=== PATIENT | male | born 1975 | race Caucasian/White ===

== ENCOUNTER 2023-10-18 15:34 | Emergency (ER) | payer BC ==
--- OUTSIDE RECORDS SUMMARY | 2023-10-18 15:38 | XMS REPORT | Continuity of Care Document ---
:1975 Author Organization [facility] t Address [address] [facility]. [address] [place] [address] Care Team Providers Name Role Phone DEE RAMIREZ Primary Care Physician Unavailable JIA GORDILLO Attending Clinician Unavailable ANGLE MELARA Attending Clinician Unavailable IAN HERNANDEZ Attending Clinician Unavailable JUAN FRANCISCO DUNLAP Attending Clinician Unavailable Juan Francisco Dunlap MD Attending Clinician Unavailable Dillan Saab MD Attending Clinician Shantelle Wang CRNA Attending Clinician MD SANDRA Attending Clinician Unavailable ZAHIRA LARES Attending Clinician Unavailable LAB90 Attending Clinician Unavailable JUAN FRANCISCO DUNLAP Attending Clinician Unavailable VETO MISHRA Attending Clinician Unavailable SMITA GREWAL Attending Clinician Unavailable CORAZON REED Attending Clinician Unavailable DEE RAMIREZ Attending Clinician Unavailable JUAN FRANCISCO DUNLAP Admitting Clinician Unavailable Payers Payer Name Policy Type Policy Number Effective Date Expiration Date [facility] [id number] 2023 [employer]IMARY 00:00:00 BCBS PPO POS EPO [id number] 2023 CHOICE 00:00:00 Problems Condition Condition Condition Status Onset Resolution Last Treating Co mments Source Name Details Category Date Date Treatment Clinician Date Lumbar Lumbar Disease Active 2022-[address] [facility] radiculopa radiculopa 1-24 [facility] thy thy 00:00: Medical 00 Center Lumbar Lumbar Disease Active 2022-[address] [facility] [address] spondylosi spondylosi 1-24 [facility] s s 00:00: Medical 00 [place] Low back Low back Disease Active Kelse y pain pain 07-28 [facility] 00:00: - 00 Externa l Allergies, Adverse Reactions, Alerts Allergy Allergy Status Severity Reaction(s) Onset Inactive Treating Comm ents Source Name Type Date Date Clinician Steroids Propensi Active 2022-[address] [facility] problem Medical reaction 00 Center s STEROIDS Allergy Active 2022-[address] [facility] [address] -20 [facility] Center Gabapent Propensi Active 2022-[address] [facility] ty to 1-17 [facility] adverse 00:00: Medical reaction 00 Center s GABAPENT Allergy Active 2022-[address] [facility] [place] -17 [facility] 00:[facility] Medical 00 Center Gabapent Propensi Active Other Patient Kelse y in ty to 08-05 stated [facility] adverse 00:00: that - reaction 00 medicatio Exter na s n effects l his thinking and makes him groggy . Social History Social Habit Start Date Stop Date Quantity Comments Source Gender identity Denise mixon - External History of tobacco [facility] use [facility] Sexual orientation [place] Alcohol intake 2023-10-17 2023-10-17 Ex-drinker [facility] 00:00:00 00:00:00 (finding) [facility] History of Social 2023-10-17 2023-10-[address] [facility] function 00:00:00 00:00:00 [facility] Tobacco use and 2023-10-10 2023-10-10 Smokeless tobacco [facility] exposure 00:00[facility]00 00:00:00 non-user [facility] Tobacco Comment 2023-10-10 2023-10-10 Quit 06/[address] [facility] 00:00:00 00:00:00 [facility] Alcohol Comment 2023-07-27 2023-07-27 rarely Denise mixon 00:00:00 00:00:00 - External Cigarettes smoked 2023-07-27 2023-07-27 Denise Steven current (pack per 00:00:00 00:00:00 - Exter nal day) - Reported Cigarette 2023-07-27 2023-07-27 Denise Steven pack-years 00:00:00 00:00:00 - External Sex Assigned At [address] [facility] Smoking Status Start Date Stop Date Source Ex-smoker 2023-10-10 00:00:00 2023-10-10 00:00:[address] [facility] Smokes tobacco daily 2023-07-27 00:00:00 Denise Tenisha - External Medications Ordered Filled Start Stop Current Ordering Indication Dosage Frequency Signature Comments Components Source Medication Medication Date Date Medication? Clinician (SIG) Name Name pregabalin 2022-11 Yes 50mg [id number] Take [address] [facility] (LYRICA) 50 12-16 [id number] [facility] capsule 11:59: 3D (50 mg Medic al 39 total) by Center mouth 3 (three) times daily. varenicline 2022-11 Yes Take by [facility] tartrate 12-16 mouth. [place] (CHANTIX 11:59: Medical ORAL) 39 Center oxyCODONE-a 2022-11- Yes 1{tbl} Take [address] cetaminophe 12-16 tablet by Bella garcia n 00:00: 23:59 mouth Medical (PERCOCET) 00 :00 every 6 Center 10-325 mg (six) per tablet hours as needed for Pain for up to 10 days. Max Daily Amount: 4 tablets cyclobenzap 2022-11- Yes 10mg Q.[id number] Take [address] [facility] rine 12-16 [id number] tablet (10 Bella kes (FLEXERIL) 00:00: 23:59 3D mg total) M edical 10 MG 00 :00 by mouth 3 Center tablet (three) times daily for 10 days. docusate 2022-11- Yes 100mg Q.[id number] Take [address] [address] sodium 12-16 [id number] capsule Thor es (COLACE) 00:00: 23:59 3D (100 mg Medic al 100 MG 00 :00 total) by Center capsule mouth 3 (three) times daily for 10 days. senna 2022-11- Yes 8.6mg Q.5D Take [address] (SENOKOT) 12-16 12-06 tablet [facility] 8.6 mg 00:00: 23:59 (8.6 mg Medical tablet 00 :00 total) by Center mouth 2 (two) times daily for 10 days. Varenicline 2022-11 Yes Take by Caio [facility]y Tartrate 1-09 mouth. [facility] (CHANTIX 10:10: - OR) 48 Externa l Varenicline 2022-11 Yes Take by Caio sey Tartrate 1-02 mouth. [facility] (CHANTIX 08:19: - OR) 10 Externa l Varenicline 2022-11 Yes Take by Caio sey Tartrate 1-02 mouth. [facility] (CHANTIX 08:19: - OR) 10 Externa l Varenicline 2022-11 Yes Take by Caio sey Tartrate 0-25 mouth. [facility] (CHANTIX 10:05: - OR) 31 Externa l Duloxetine 2022-11 Yes [id number] 20mg Take 1 Denise HCl 20 MG 0-04 capsule Seybold oral Cap DR 00:00: (20 mg - Particles 00 total) by Exter na mouth l daily. Pregabalin 2022-11 Yes [id number] 50mg Take 1 Denise (Lyrica) 50 0-04 [id number] capsule Sey bold MG oral 00:00: (50 mg - Capsule 00 total) by Externa mouth 3 l times daily No driving. No alcohol. No operating machinery. . Duloxetine 2022-11 Yes [id number] 20mg Take 1 Denise HCl 20 MG 0-04 capsule Seybold oral Cap DR 00:00: (20 mg - Particles 00 total) by Exter na mouth l daily. Pregabalin 2022-11 Yes [id number] 50mg Take 1 Denise (Lyrica) 50 0-04 [id number] capsule Sey bold MG oral 00:00: (50 mg - Capsule 00 total) by Externa mouth 3 l times daily No driving. No alcohol. No operating machinery. . Pregabalin 2022-11 Yes [id number] 50mg Take 1 Denise (Lyrica) 50 0-04 [id number] capsule Sey bold MG oral 00:00: (50 mg - Capsule 00 total) by Externa mouth 3 l times daily No driving. No alcohol. No operating machinery. . Pregabalin 2022-11 Yes [id number] 50mg Take 1 Denise (Lyrica) 50 0-04 [id number] capsule Sey bold MG oral 00:00: (50 mg - Capsule 00 total) by Externa mouth 3 l times daily No driving. No alcohol. No operating machinery. . Pregabalin 2022-11 Yes [id number] 50mg Take 1 Denise (Lyrica) 50 0-04 [id number] capsule Sey bold MG oral 00:00: (50 mg - Capsule 00 total) by Externa mouth 3 l times daily No driving. No alcohol. No operating machinery. . Duloxetine 2022-11 Yes [id number] 20mg Take 1 Denise HCl 20 MG 0-04 capsule Seybold oral Cap DR 00:00: (20 mg - Particles 00 total) by Exter na mouth l daily. Pregabalin 2022-11 Yes [id number] 50mg Take 1 Denise (Lyrica) 50 0-04 [id number] capsule Sey bold MG oral 00:00: (50 mg - Capsule 00 total) by Externa mouth 3 l times daily No driving. No alcohol. No operating machinery. . Duloxetine 2022-11- No [id number] 20mg Take 1 Denise HCl 20 MG 0-04 11-02 capsule Seybol d oral Cap DR 00:00: 00:00 (20 mg - Particles 00 :00 total) by Exter na mouth l daily. Duloxetine 2022-11- No [id number] 20mg Take 1 Denise HCl 20 MG 0-04 11-02 capsule Seybol d oral Cap DR 00:00: 00:00 (20 mg - Particles 00 :00 total) by Exter na mouth l daily. Cyclobenzap Yes [id number] 1 po three Denise rine HCl 5 9-15 [id number] times a Seyb old MG oral 00:00: day as - Tablet 00 needed for Externa spasms. NO l DRIVING NO OPERATING MACHINEs. traMADol-Ac Yes [id number] 1 tablets Denise etaminophen 9-15 [id number] by mouth Se ybold (Ultracet) 00:00: every 4-6 - 37.5-325 MG 00 hours PRN Ext keren oral Tablet Pain. NO l DRIVING NO OPERATING MACHINEs. Cyclobenzap Yes [id number] 1 po three Denise rine HCl 5 9-15 [id number] times a Seyb old MG oral 00:00: day as - Tablet 00 needed for Externa spasms. NO l DRIVING NO OPERATING MACHINEs. traMADol-Ac Yes [id number] 1 tablets Denise etaminophen 9-15 [id number] by mouth Se ybold (Ultracet) 00:00: every 4-6 - 37.5-325 MG 00 hours PRN Ext keren oral Tablet Pain. NO l DRIVING NO OPERATING MACHINEs. Cyclobenzap Yes [id number] 1 po three Denise rine HCl 5 9-15 [id number] times a Seyb old MG oral 00:00: day as - Tablet 00 needed for Externa spasms. NO l DRIVING NO OPERATING MACHINEs. traMADol-Ac Yes [id number] 1 tablets Denise etaminophen 9-15 [id number] by mouth Se ybold (Ultracet) 00:00: every 4-6 - 37.5-325 MG 00 hours PRN Ext keren oral Tablet Pain. NO l DRIVING NO OPERATING MACHINEs. Cyclobenzap Yes [id number] 1 po three Denise rine HCl 5 9-15 [id number] times a Seyb old MG oral 00:00: day as - Tablet 00 needed for Externa spasms. NO l DRIVING NO OPERATING MACHINEs. traMADol-Ac Yes [id number] 1 tablets Denise etaminophen 9-15 [id number] by mouth Se ybold (Ultracet) 00:00: every 4-6 - 37.5-325 MG 00 hours PRN Ext keren oral Tablet Pain. NO l DRIVING NO OPERATING MACHINEs. Cyclobenzap Yes [id number] 1 po three Denise rine HCl 5 9-15 133000 times a Seyb old MG oral 00:00: day as - Tablet 00 needed for Externa spasms. NO l DRIVING NO OPERATING MACHINEs. traMADol-Ac Yes [id number] 1 tablets Denise etaminophen 9-15 [id number] by mouth Se ybold (Ultracet) 00:00: every 4-6 - 37.5-325 MG 00 hours PRN Ext keren oral Tablet Pain. NO l DRIVING NO OPERATING MACHINEs. Cyclobenzap 2022- No [id number] 1 po three Denise rine HCl 5 9-15 09-22 [id number] times a Sey bold MG oral 00:00: 00:00 day as - Tablet 00 :00 needed for Externa spasms. NO l DRIVING NO OPERATING MACHINEs. traMADol-Ac 2022- No [id number] 1 tablets Denise etaminophen 08-05 [id number] by mouth S eybold (Ultracet) 00:00: 00:00 every 4-6 - 37.5-325 MG 00 :00 hours PRN Ext keren oral Tablet Pain. NO l DRIVING NO OPERATING MACHINEs. Cyclobenzap 2022- No [id number] 1 po three Denise rine HCl 5 08-05 [id number] times a Sey bold MG oral 00:00: 00:00 day as - Tablet 00 :00 needed for Externa spasms. NO l DRIVING NO OPERATING MACHINEs. traMADol-Ac 2022- No [id number] 1 tablets Denise etaminophen 08-05 [id number] by mouth S eybold (Ultracet) 00:00: 00:00 every 4-6 - 37.5-325 MG 00 :00 hours PRN Ext keren oral Tablet Pain. NO l DRIVING NO OPERATING MACHINEs. Finasteride 2023-0 Yes 5mg Take 1 Johnna ey 5 MG oral 8-25 tablet (5 Seybo ld Tablet 00:00: mg total) - 00 by mouth Externa daily. l Finasteride 2023-0 Yes 5mg Take 1 Johnna ey 5 MG oral 8-25 tablet (5 Seybo ld Tablet 00:00: mg total) - 00 by mouth Externa daily. l Finasteride 2023-0 Yes 5mg Take 1 Johnna ey 5 MG oral 8-25 tablet (5 Seybo ld Tablet 00:00: mg total) - 00 by mouth Externa daily. l Finasteride 2023-0 Yes 5mg Take 1 Johnna ey 5 MG oral 8-25 tablet (5 Seybo ld Tablet 00:00: mg total) - 00 by mouth Externa daily. l Finasteride 2023-0 Yes 5mg Take 1 Johnna ey 5 MG oral 8-25 tablet (5 Seybo ld Tablet 00:00: mg total) - 00 by mouth Externa daily. l Finasteride 2023-0 Yes 5mg Take 1 Johnna ey 5 MG oral 8-25 tablet (5 Seybo ld Tablet 00:00: mg total) - 00 by mouth Externa daily. l Finasteride 2023-0 Yes 5mg Take 1 Johnna ey 5 MG oral 8-25 tablet (5 Seybo ld Tablet 00:00: mg total) - 00 by mouth Externa daily. l Finasteride 2023-0 Yes 5mg Take 1 Johnna ey 5 MG oral 8-25 tablet (5 Seybo ld Tablet 00:00: mg total) - 00 by mouth Externa daily. l Finasteride 2023-0 Yes 5mg Take 1 Johnna ey 5 MG oral 8-25 tablet (5 Seybo ld Tablet 00:00: mg total) - 00 by mouth Externa daily. l Naproxen 2023-0 Yes 375mg Take 1 Denise 375 MG oral 6-22 tablet Seybol d Tablet 00:00: (375 mg - 00 total) by Externa mouth 2 l times daily FOR 10 DAYS. Naproxen 2023-0 Yes 375mg Take 1 Denise 375 MG oral 6-22 tablet Seybol d Tablet 00:00: (375 mg - 00 total) by Externa mouth 2 l times daily FOR 10 DAYS. Naproxen 2023-0 Yes 375mg Take 1 Denise 375 MG oral 6-22 tablet Seybol d Tablet 00:00: (375 mg - 00 total) by Externa mouth 2 l times daily FOR 10 DAYS. Naproxen 2023-0 Yes 375mg Take 1 Denise 375 MG oral 6-22 tablet Seybol d Tablet 00:00: (375 mg - 00 total) by Externa mouth 2 l times daily FOR 10 DAYS. Naproxen 2023-0 Yes 375mg Take 1 Denise 375 MG oral 6-22 tablet Seybol d Tablet 00:00: (375 mg - 00 total) by Externa mouth 2 l times daily FOR 10 DAYS. Naproxen 2023-0 Yes 375mg Take 1 Denise 375 MG oral 6-22 tablet Seybol d Tablet 00:00: (375 mg - 00 total) by Externa mouth 2 l times daily FOR 10 DAYS. Naproxen 2023-0 Yes 375mg Take 1 Denise 375 MG oral 6-22 tablet Seybol d Tablet 00:00: (375 mg - 00 total) by Externa mouth 2 l times daily FOR 10 DAYS. Naproxen Yes 375mg Take 1 Denise 375 MG oral 05-12 tablet Seybol d Tablet 00:00: (375 mg - 00 total) by Externa mouth 2 l times daily FOR 10 DAYS. Naproxen 2022- No 375mg Take 1 Kelse y 375 MG oral 05-12 tablet Seybo ld Tablet 00:00: 00:00 (375 mg - 00 :00 total) by Externa mouth 2 l times daily FOR 10 DAYS. Omeprazole 2022- No 40mg Take 2 Johnna ey 20 MG oral 05-12- capsules Seyb old Delayed 00:00: 00:00 (40 mg - Release 00 :00 total) by Externa Capsule mouth l daily. Gabapentin 2022- No 300mg Q.[id number] Take 1 Denise 300 MG oral 05-12 [id number] capsule Seybold Capsule 00:00: 00:00 3D (300 mg - 00 :00 total) by Externa mouth 3 l times daily as needed. Meloxicam 2022- No 15mg Take 1 Kelse y 15 MG oral 05-12 tablet (15 Se ybold Tablet 00:00: 00:00 mg total) - 00 :00 by mouth Externa daily. l Methocarbam 2022- No 750mg Q.25D Take 1 K elsey ol 750 MG 05-12- tablet Seybold oral Tablet 00:00: 00:00 (750 mg - 00 :00 total) by Externa mouth 4 l times daily as needed. Varenicline 2022- No 1mg Take 1 Caio sey Tartrate 1 05-12- tablet (1 Sey bold MG oral 00:00: 00:00 mg total) - Tablet 00 :00 by mouth 2 Externa times l daily. Vital Signs Vital Name Observation Time Observation Value Comments Source HEIGHT 2023-10-14 09:25:00 182.9 cm WEIGHT 2023-10-14 09:25:00 96.7 kg HEIGHT 2023-10-10 12:30:00 182.9 cm WEIGHT 2023-10-10 12:30:00 92.987 kg HEIGHT 2023-10-14 09:25:00 182.9 cm WEIGHT 2023-10-14 09:25:00 96.7 kg HEIGHT 2023-10-10 12:30:00 182.9 cm WEIGHT 2023-10-10 12:30:00 92.987 kg HEIGHT 2023-10-14 09:25:00 182.9 cm WEIGHT 2023-10-14 09:25:00 96.7 kg HEIGHT 2023-10-10 12:30:00 182.9 cm WEIGHT 2023-10-10 12:30:00 92.987 kg Systolic blood 2023-09-29 16:09:00 130 mm[Hg] Denise Seybold - pressure External Diastolic blood 2023-09-29 16:09:00 84 mm[Hg] Caiose y [facility]bold - pressure External Heart rate 2023-09-29 16:09:00 78 /min Denise S eybold - External Body temperature 2023-09-29 16:09:00 36.72 [place] Johnna ey Seybold - External Respiratory rate 2023-09-29 16:09:00 18 /min Johnna ey Seybold - External Body height 2023-09-29 16:09:00 182.9 cm Denise Vance eybold - External Body weight 2023-09-29 16:09:00 95.312 kg Denise S eybold - External BMI 2023-09-29 16:09:00 28.50 kg/m2 Denise Vance eybold - External Oxygen saturation in 2023-09-29 16:09:00 98 /min Denise Steven - Arterial blood by External Pulse oximetry Systolic blood 2023-09-22 13:16:00 124 mm[Hg] Denise Seybold - pressure External Diastolic blood 2023-09-22 13:16:00 82 mm[Hg] Kelse y Seybold - pressure External Heart rate 2023-09-22 13:16:00 78 /min Denise S eybold - External Body temperature 2023-09-22 13:16:00 36.61 [place] Johnna ey Seybold - External Respiratory rate 2023-09-22 13:16:00 18 /min Johnna ey Seybold - External Body height 2023-09-22 13:16:00 182.9 cm Denise Vance eybold - External Body weight 2023-09-22 13:16:00 95.709 kg Denise Vance eybold - External BMI 2023-09-22 13:16:00 28.62 kg/m2 Denise Vance eybold - External Oxygen saturation in 2023-09-22 13:16:00 98 /min Denise Chaseybjack - Arterial blood by External Pulse oximetry Body height 2023-09-21 14:06:00 182.9 cm Denise Vance eybold - External Body weight 2023-09-21 14:06:00 95.074 kg Denise Vance eybold - External BMI 2023-09-21 14:06:00 28.43 kg/m2 Denise Vance eybold - External Systolic blood 2023-09-14 15:02:00 140 mm[Hg] Denise Seybold - pressure External Diastolic blood 2023-09-14 15:02:00 90 mm[Hg] Caiose y Seybold - pressure External Heart rate 2023-09-14 15:02:00 102 /min Denise Vance eybold - External Body temperature 2023-09-14 15:02:00 36.5 [place] Johnna ey Seybold - External Respiratory rate 2023-09-14 15:02:00 18 /min Johnna wilson Seybold - External Body height 2023-09-14 15:02:00 182.9 cm Denise Vance eybold - External Body weight 2023-09-14 15:02:00 93.713 kg Denise Vance eybold - External BMI 2023-09-14 15:02:00 28.02 kg/m2 Denise Vance eybold - External Systolic blood 2023-09-07 19:06:00 133 mm[Hg] Denise Seybold - pressure External Diastolic blood 2023-09-07 19:06:00 93 mm[Hg] Kelse y Seybold - pressure External Heart rate 2023-09-07 19:06:00 99 /min Denise Vance eybold - External Body height 2023-09-07 19:06:00 182.9 cm Denise Vance eybold - External Body weight 2023-09-07 19:06:00 92.08 kg Denise Vance eybold - External BMI 2023-09-07 19:06:00 27.53 kg/m2 Denise S eybold - External Heart rate 2023-08-24 18:30:00 96 /min Denise S eybold - External Body temperature 2023-08-24 18:30:00 36.61 [place] Johnna ey Seybold - External Respiratory rate 2023-08-24 18:30:00 21 /min Johnna ey Seybold - External Body height 2023-08-24 18:30:00 182.9 cm Denise S eybold - External Body weight 2023-08-24 18:30:00 92.352 kg Denise S eybold - External BMI 2023-08-24 18:30:00 27.61 kg/m2 Denise Vance eybold - External Oxygen saturation in 2023-08-24 18:30:00 99 /min Denise Seybold - Arterial blood by External Pulse oximetry Systolic blood 2023-08-24 18:30:00 130 mm[Hg] Denise Seybold - pressure External Diastolic blood 2023-08-24 18:30:00 90 mm[Hg] Mercedes y Seybold - pressure External Body height 2023-08-24 14:48:00 182.9 cm Denise Vance eybold - External Body weight 2023-08-24 14:48:00 91.354 kg Denise Vance eybold - External BMI 2023-08-24 14:48:00 27.31 kg/m2 Denise S eybold - External Systolic blood 2023-08-05 13:08:00 134 mm[Hg] Denise Seybold - pressure External Diastolic blood 2023-08-05 13:08:00 88 mm[Hg] Caiose y Seybold - pressure External Heart rate 2023-08-05 13:08:00 78 /min Denise S eybold - External Body temperature 2023-08-05 13:08:00 36.83 [place] Johnna ey Seybold - External Respiratory rate 2023-08-05 13:08:00 18 /min Johnna ey Seybold - External Body height 2023-08-05 13:08:00 182.9 cm Denise S eybold - External Body weight 2023-08-05 13:08:00 91.627 kg Denise Vance eybold - External BMI 2023-08-05 13:08:00 27.40 kg/m2 Denise S eybold - External Systolic blood 2023-07-28 21:50:00 129 mm[Hg] Denise Seybold - pressure External Diastolic blood 2023-07-28 21:50:00 90 mm[Hg] Mercedes y Seybold - pressure External Heart rate 2023-07-28 21:50:00 90 /min Denise Vance eybold - External Body temperature 2023-07-28 21:50:00 36.5 [place] Johnna wilson Seybold - External Respiratory rate 2023-07-28 21:50:00 20 /min Johnna wilson Seybold - External Body height 2023-07-28 21:50:00 182.9 cm Denise Vance eybold - External Body weight 2023-07-28 21:50:00 93.441 kg Denise wilsonbold - External BMI 2023-07-28 21:50:00 27.94 kg/m2 Denise wilsonbold - External Oxygen saturation in 2023-07-28 21:50:00 99 /min Denise Steven - Arterial blood by External Pulse oximetry Systolic blood 2023-10-16 08:12:00 121 mm[Hg] [facility] Diastolic blood 2023-10-16 08:12:00 72 mm[Hg] [facility] Heart rate 2023-10-16 08:12:00 112 /min [facility] Body temperature 2023-10-16 08:12:00 37.22 [place] Respiratory rate 2023-10-16 08:12:00 18 /min [place] Oxygen saturation in 2023-10-16 08:12:00 95 /min [facility] Arterial blood by Medical Ce nter Pulse oximetry Body height 2023-10-14 09:25:00 182.9 cm [facility] Body weight 2023-10-14 09:25:00 96.7 kg [facility] BMI 2023-10-14 09:25:00 28.91 kg/m2 [facility] Procedures Procedure Date / Time Performing Clinician Source Performed XR LUMBAR SPINE 2 OR 3 2023-10-15 14:15:00 Aquilino Moreno [facility] 2023-10-15 05:26:00 [facility] CBC (HEMOGRAM ONLY) 2023-10-15 05:26:00 SutterAquilino [facility] [place] FLUORO NON-SPECIFIC UP 2023-10-14 14:41:00 Ropper, [facility] TO [facility] HOUR [facility] [place] NON-SPECIFIC UP 2023-10-14 13:29:00 Ropper, [facility] TO 1 HOUR [facility] FLUORO NON-SPECIFIC UP 2023-10-14 12:17:00 [facility] TO 1 HOUR [facility] FUSION, SPINE, LUMBAR, TLIF 2023-10-14 11:11[facility] 2023-10-14 11:11:00 [facility] BIOMEDICAL DEVICE, SPINE, Medica l [place] LUMBAR PROCEDURE, ALLOGRAFT, FOR 2023-10-14 11:11:00 [facility] SPINE SURGERY [facility] AUTOGRAFT FOR SPINE SURGERY 2023-10-14 11:11:00 [facility] [place] PROCEDURE, USING FRAMELESS 2023-10-14 11:11:00 [facility] STEREOTAXY [facility] PROCEDURE W/ C-ARM 2023-10-14 11:11:00 [facility] 2023-10-14 11:11[facility] MONITORING, INTRAOPERATIVE Medic al [place] PROCEDURE, USING OPERATING 2023-10-14 11:11:00 [facility] MICROSCOPE [facility] ABORH, MANUAL 2023-10-14 09:45:00 Destiny Burgess [place] TYPE AND SCREEN, AUTOMATED 2023-10-14 09:28:00 Licha Das [facility] LUMBAR SPINE 2 VIEWS 2023-08-05 13:15:48 Dural, Smita Denise Seapurva - [facility] External Plan of Care Planned Activity Planned Date Details Comments Source Future Scheduled 2024-10-[address] [facility] Test 00:00:00 Counseling and Screening [facility] [place] (12+) [code = Tobacco Cessation Counseling and Screening (12+)] Future Scheduled 2023 SHINGLES VACCINES ([address] [facility] Test 00:00:00 2) [code = SHINGLES Medical Center VACCINES (1 of 2)] Future Scheduled 2023-07-22 Influenza Vaccine (#1) [facility] 00:[facility]00 [code = Influenza Vaccine [facility] (#1)] Future Scheduled 2022-11-[address] [facility] Test 00:00:00 (12+) [code = DEPRESSION [facility] SCREENING (12+)] Future Scheduled 2008 Lipid panel (procedure) [facility] Test 00:00:00 [code = 39290221] Medical Ce nter Future Scheduled 1992 DTAP/TDAP/TD VACCINES ([address] [facility] Test 00:00:00 - Tdap) [code = Medical Cent er DTAP/TDAP/TD VACCINES (1 - Tdap)] Future Scheduled 1991 HEPATITIS C [facility]CRE[facility]ING [facility] 00:00:00 [code = HEPATITIS C Medical Center SCREENING] Future Scheduled [address] [facility] Test 00:00:00 virus screening Medical Cent er (procedure) [code = 103186849] Future Scheduled 1974[birth year]01-23 COVID-19 VACCINE (#1) [facility] 00:[facility]:00 [code = COVID-19 VACCINE [facility] (#1)] Future Scheduled 1973 CT Colonography (combo) [facility] Test 00:00:00 [code = CT Colonography [facility] (combo)] Future Scheduled 1973 Screening for malignant [facility] Test 00:00:00 neoplasm of colon Medical Ce nter (procedure) [code = 150507227] Future Scheduled 1973 Screening for malignant [facility] Test 00:00:00 neoplasm of colon Medical Ce nter (procedure) [code = 362285580] Future Scheduled 1973 Screening for malignant [facility] Test 00:00:00 neoplasm of colon Medical Ce nter (procedure) [code = 512330198] Future Scheduled 1973 Screening for malignant [facility] Test 00:00:00 neoplasm of colon Medical Ce nter (procedure) [code = 854611324] Future Scheduled 1975 Sigmoidoscopy [code = [facility] S[facility]oidoscopy] Medical Cente r Encounters Start End Encounter Admission Attending Care Care Encounter Source Date/Time Date/Time Type Type Clinicians Facility Department ID 2023-10-19 2023-10-19 Outpatient DENISE GORDILLO [id number] Denise 11:15:00 11:15:00 JIA Laool christiana 2023-10-18 2023-10-18 Outpatient DENISE MELARA [id number] Denise 00:00:00 00:00:00 ANGLE cochran 2023-10-17 2023-10-17 Outpatient IAN HERNANDEZ [id number] Denise 00:00:00 00:00:00 Seybol d 2023-10-14 2023-10-16 Inpatient [facility], [facility] Surgery [id number] [facility] 08:59:00 11:59:00 [place] 2023-10-14 2023-10-16 Hospital [facility], [facility] [id number] 08:59:00 11:59:00 Encounter [facility] 2023-10-15 2023-10-15 Outpatient [facility], [facility] [id number] [facility] 00:00:00 00:00:00 [place] 2023-10-14 2023-10-14 Surgery [facility], [facility] [id number] 11:00:00 15:30:00 [facility] 2023-10-14 2023-10-[address] [facility] [id number] [facility] 11:11:00 15:17:00 Event Shantelle Wang [facility] 2023-10-14 2023-10-14 Outpatient [facility], [facility] SLE[facility] [id number] [facility] 13:24:03 13:24:03 JUAN FRANCISCO 2023-10-14 2023-10-14 Outpatient BEKAH DUNLAP SLEAlejandro [facility] [id number] [facility] 13:24:03 13:24:03 [place]UAN FRANCIS[place] 2023-10-14 2023-10-14 Outpatient BEKAH DUNLAP [facility] [id number] [facility] 13:24:03 13:24:03 JUAN FRANCISCO 2023-10-14 2023-10-14 Travel [facility] [id number] [facility] 00:[facility] 00:00:00 [facility] 2023-10-12 2023-10-12 Outpatient CHRIS TURNER [id number] Denise 00:00:00 00:00:00 MD PAULA Seybol d 2023-10-10 2023-10-10 Outpatient BEKAH SLE SLE [id number] SLE 00:00:00 00:00:00 2023-10-10 2023-10-10 Travel [facility] [id number] [facility] 00:[facility]00 [facility] 2023-09-30 2023-09-30 Outpatient DENISE TURNER [id number] Denise 00:00:00 00:00:00 Seybol d 2023-09-30 2023-09-30 Outpatient DENISE TURNER [id number] Denise 00:00:00 00:00:00 Seybol d 2023-09-29 2023-09-29 Outpatient DENISE TURNER [id number] Denise 11:50:00 11:50:00 Seybol d 2023-09-29 2023-09-29 Outpatient DENISE LARES [id number] Denise 10:30:00 10:30:00 ZAHIRA Seybol d 2023-09-29 2023-09-29 Outpatient DENISE TURNER [id number] Denise 00:00:00 00:00:00 Seybol d 2023-09-28 2023-09-28 Outpatient DENISE GORDILLO [id number] Denise 13:30:00 13:30:00 JIA Seybol d 2023-09-22 2023-09-22 Outpatient LAB90 DENISE TURNER [id number] Denise 09:15:00 09:15:00 Seybol d 2023-09-22 2023-09-22 Outpatient JUAN FRANCISCO DENISE TURNER [id number] Denise 08:30:00 08:30:00 ZAHIRA Seybol d 2023-09-21 2023-09-21 Outpatient JHONATANANOOP DENISE TURNER [id number] Denise 09:30:00 09:30:00 JUAN FRANCISCO Seyb old 2023-09-14 2023-09-14 Outpatient ANSOANUUDony DENISE TURNER [id number] Denise 10:00:00 10:00:00 JIA Seybol d 2023-09-07 2023-09-07 Outpatient JHONATANANOOP DENISE TURNER [id number] Denise 14:30:00 14:30:00 JUAN FRANCISCO Seyb old 2023-08-29 2023-08-29 Outpatient DANICADENISE [id number] Denise 14:00:00 14:00:00 VETO Seybol d 2023-08-24 2023-08-24 Outpatient ANSOAEduinUUDENISE Napoles [id number] Denise 13:30:00 13:30:00 JIA Seybol d 2023-08-24 2023-08-24 Outpatient CARMINASMITA DENISE TURNER [id number] Denise 10:30:00 10:30:00 Seybol d 2023-08-24 2023-08-24 Outpatient DENISE TURNER [id number] Denise 00:00:00 00:00:00 Seybol d 2023-08-24 2023-08-24 Outpatient BRIANNA DENISE TURNER [id number] Denise 00:00:00 00:00:00 AHMED Seybol d 2023-08-24 2023-08-24 Outpatient DENISE RAMIREZ [id number] Denise 00:00:00 00:00:00 DEE Seybol d 2023-08-22 2023-08-22 Outpatient DENISE TURNER [id number] Denise 11:15:00 11:15:00 Seybol d 2023-08-17 2023-08-17 Outpatient DENISE TURNER [id number] Denise 00:00:00 00:00:00 Seybol d 2023-08-05 2023-08-05 Outpatient DENISE TURNER [id number] Denise 08:10:00 08:10:00 Seybol d 2023-08-05 2023-08-05 Outpatient SMITA GREWAL [id number] Denise 08:00:00 08:00:00 Seybol d 2023-07-28 2023-07-28 Outpatient DENISE LARES [id number] Denise 16:30:00 16:30:00 ZAHIRA Seybol d Results Test Description Test Time Test Comments Results Result Sourc e Comments FL fluoro 2023-10-17 This is a [facility] non-specific up 11:28:30 non-reportable Medic al to 1 hour study with no Center Radiologist dictation. Please refer to your PACS to review images, or Doc Flowsheets for documentation on studies without images. FL FLUORO 2023-10-17 NON-SPECIFIC UP 11:28:30 TO 1 HOUR [facility] CENTERName: KEYA STARKS : 1975 Sex: M This is a non-reportable study with no Radiologist dictation. Please refer to your PACS to review images, or Doc Flowsheets for documentation on studies without images. XR spine lumbar 2 2023-10-15 LUMBAR SPINE 2 [facility] or 3 views 17:17:44 VIEWS HISTORY: Medical Status post lumbar Center spine fusion COMPARISON: No prior comparison lumbar spine imaging FINDINGS: Standing AP and lateral lumbar spine radiographs were obtained. AP and lateral standing radiographs of the lumbar spine were obtained. Status post posterior lumbar body fusion from L3-L5. Bilateral pediclescrews and posterior rods are present from L3-L5. Interbody spacers arepresent at L3-L4 and L4-L5. No hardware loosening or back out are visualized. Electronically Signed By: Ranjit Sheth10/15/2023 17:19 CDTWorkstation Name: [id number] XR LUMBAR SPINE 2 2023-10-15 OR 3 VIEWS 17:17:44 [facility] 1975 Sex: M LUMBAR SPINE 2 VIEWSHISTORY: Status post lumbar spine fusionCOMPARISON: No prior comparison lumbar spine imagingFINDINGS:Sta nding AP and lateral lumbar spine radiographs were obtained.AP and lateral standing radiographs of the lumbar spine were obtained.Status post posterior lumbar body fusion from L3-L5. Bilateral pediclescrews and posterior rods are present from L3-L5. Interbody spacers arepresent at L3-L4 and L4-L5.No hardware loosening or back out are visualized.Electron ically Signed By: Ranjit Sheth10/15/2023 17:19 CDTWorkstation Name: [id number] BASIC METABOLIC PANEL 2023-10-15 06:27:58 Test Item Value Reference Range Interpretation Comme nts SODIUM (BEAKER) (test 138 meq/L 136-145 code = 381) POTASSIUM (BEAKER) 4.2 meq/L 3.5-5.1 Specimen slightly hemolyzed (test code = 379) CHLORIDE (BEAKER) (test 106 meq/L 98-107 code = 382) CO2 (BEAKER) (test code 21 meq/L 22-29 L = 355) BLOOD UREA NITROGEN 14 mg/dL 7-21 (BEAKER) (test code = 354) CREATININE (BEAKER) 1.13 mg/dL 0.57-1.25 Specimen slightly hemolyzed (test code = 358) GLUCOSE RANDOM (BEAKER) 87 mg/dL 70-105 (test code = 652) CALCIUM (BEAKER) (test 8.4 mg/dL 8.4-10.2 code = 697) EGFR (BEAKER) (test 80 mL/min/1.73 sq In terpretation of eGFR values code = 1092) m Stage Descripti on Result G1 Normal or high >=90 G2 Mildly decreased 60-89 G3a Mildly to moderately 45-5 9 G3b Moderately to severely 30- 44 G4 Severly decreased 15-29 G5 Kidney failure <15Repo rted eGFR is based on the CK D-EPI 2020 equation that d oes not use a race coefficien tEstimated GFR is not as accurate as Creatinine Clearance in pr edicting glomerular filt ration rate. Estimated GFR i s not applicable for dialysis thony hudson Foreign Language Interpreter ID - [id number] (HEMOGRAM ONLY)2023-10-15 06:13:51 Test Item Value Reference Range Interpretation Comments WHITE BLOOD CELL COUNT (BEAKER) 8.1 K/ L 3.5-10.5 (test code = 775) RED BLOOD CELL COUNT (BEAKER) 5.06 M/ L 4.63-6.08 (test code = 761) HEMOGLOBIN (BEAKER) (test code = 15.6 GM/DL 13.7-17.5 410) HEMATOCRIT (BEAKER) (test code = 46.6 % 40.1-51.0 411) MEAN CORPUSCULAR VOLUME (BEAKER) 92 fL 79-92 (test code = 753) MEAN CORPUSCULAR HEMOGLOBIN 30.8 pg 25.7-32.2 (BEAKER) (test code = 751) MEAN CORPUSCULAR HEMOGLOBIN CONC 33.5 GM/DL 32.3-36.5 (BEAKER) (test code = 752) RED CELL DISTRIBUTION WIDTH 13.4 % 11.6-14.4 (BEAKER) (test code = 412) PLATELET COUNT (BEAKER) (test code 68 K/CU MM 150-450 L = 756) MEAN PLATELET VOLUME (BEAKER) 10.4 fL 9.4-12.4 (test code = 754) NUCLEATED RED BLOOD CELLS (BEAKER) 0 /100 WBC 0-0 (test code = 413) FL FLUORO NON-SPECIFIC UP TO 1 [id number] 13:46:44 [facility] 1975 Sex: MThis is a non- reportable study with no Radiologist dictation. Please refer to your PACS to review images, or Doc Flowsheets for documentation on studies without images.FL FLUORO NON-SPECIFIC UP TO 1 [id number] 13:30:26 [facility] 1975 Sex: MTECHNIQUE: 1 lateral fluoroscopic image of the lumbar spine forlocalization.Fluoroscopic time: 12 second(s).FINDINGS:The surgical probe is at the L4-L5 disc.The findings were discussed with Dr. Dunlap in theOR who concurred withthe findings.IMPRESSION:Intraoperative localization plain film as described kalee crowellElectronically Signed By: Vinicius Cruz10/14/2023 13:49 CDTWorkstation Name: [id number] Notes Date/Time Note Provider Source 2023-08-05 08:26:29 [id number]:26:29Formatting of [facility] this note is different from the original.Chief Complaint Patient presents with Back Pain 48 year old male here today for chronic midline lower back pain, radiating down into the left buttock, down into the hip region. Patient stated overall pain presented years ago, but worsened over the past 6 months, no inciting event per pt. [place] [id number] [id number]:28:26Nurse [id number] for patient [id number] NoteLNAscension SE [facility]27[address] [facility].[id number] .[id number]|[id number]. [id number]"
--- NOTE | 2023-10-18 16:59 | RAD REPORT ---
EXAM DESCRIPTION: CT - Spine Lumbar Wo Con - 10/18/2023 4:47 pm CLINICAL HISTORY: Radiculopathy. back pain, L3,4,5 Fusion 10/14 COMPARISON: <Comparisons> TECHNIQUE: Axial noncontrast CT imaging of the lumbar spine was performed with coronal and sagittal re-formatted images. All CT scans are performed using dose optimization technique as appropriate and may include automated exposure control or mA/KV adjustment according to patient size. FINDINGS: No acute lumbar spine fracture seen. No aggressive marrow pattern or malalignment. Fusion hardware is present with interbody spacers spanning L3-5. No unexpected hardware finding. Paraspinal tissues are normal in thickness. No paraspinal abscess or hematoma seen. Mild upper lumbar levoscoliosis. Symmetric sacroiliac joints are noted. Assessment within the canal a t the surgical levels is quite limited due to streak artifact. IMPRESSION: No acute lumbar spine abnormality is detected. Postsurgical changes with hardware construct spanning L3-5. No unexpected postsurgical findings seen.
[2023-10-18] MEDS ORDERED: MORPHINE 4 MG/ML SYR ONE ×2 (17:04→18:46)
[2023-10-18 17:26] LABS: Absolute Lymphocytes (CBC) 1.7 K/uL (0.7-4.9); Hematocrit 37.2 % (39.6-49.0); Lymphocytes % 22.1 % (15.3-44.8); Platelets 257 thou/uL (152-406); RBC Red Blood Cell Count 4.08 M/uL (4.33-5.43)
[2023-10-18 17:46] LABS: Potassium 3.7 mEq/L (3.5-5.1)
[2023-10-18 17:58] LABS: SARS-COV-2 RT PCR NEGATIVE (NEGATIVE)
--- NOTE | 2023-10-18 18:18 | EDPHYS ---
Physician Documentation [facility] Name: Rajat Mckee Age: 48 yrs Sex: Male : 1975 Arrival Date: 10/18/2023 Time: 15:34 Bed 13 Private MD: ED Physician Jose Luis Macias HPI: 10/18 16:16 This 48 yrs old Male presents to ER via Ambulatory with complaints of POST SPINE ms3 SURGERY /FEVER /SEVERE PAIN. 16:16 48-year-old male with no past medical history presents to the emergency department for ms3 back pain. Patient states he had a spinal fusion performed 10/14/2023 of the L3, L4-L5 vertebra by Dr. Gomes. Patient states since surgery his pain is increased and he now has a fever of 101.6. Patient states the pain is shooting down his left leg. Patient took oxycodone and Flexeril at 2 PM without relief.. Historical: - Allergies: 16:09 steroids; aa5 16:09 GABAPENTIN; aa5 - PMHx: 16:09 None; aa5 - PSHx: 16:09 L3, L4, L5 fusion 10/14/23; aa5 - Immunization history:: Adult Immunizations unknown. - Social history:: Smoking status: Patient denies any tobacco usage or history of. ROS: 16:16 Cardiovascular: Negative for chest pain, and palpitations. Respiratory: Negative for ms3 shortness of breath, cough, wheezing, and pleuritic chest pain, Abdomen/GI: Negative for abdominal pain, nausea, vomiting, diarrhea, and constipation, 16:16 Constitutional: Positive for chills, fever, 16:16 Back: Positive for decreased range of motion, pain at rest, pain with movement, 16:16 All other systems are negative, Exam: 16:16 Constitutional: This is a well developed, well nourished patient who is awake, alert, ms3 and in no acute distress. Head/Face: Normocephalic, atraumatic. Neck: Trachea midline, no cervical lymphadenopathy. Supple, full range of motion without nuchal rigidity, or vertebral point tenderness. No Meningismus. Chest/axilla: Normal chest wall appearance and motion. Nontender with no deformity. Cardiovascular: Regular rate and rhythm with a normal S1 and S2. No gallops, murmurs, or rubs. Normal PMI, no JVD. No pulse deficits. Respiratory: Lungs have equal breath sounds bilaterally, clear to auscultation and percussion. No rales, rhonchi or wheezes noted. No increased work of breathing, no retractions or nasal flaring. Abdomen/GI: Soft, non-tender, with normal bowel sounds. No distension or tympany. No guarding or rebound. No evidence of tenderness throughout. 16:16 Skin: Bilateral lumbar incisions without surrounding erythema, or drainage. + Ecchymosis surrounding area. Vital Signs: 16:10 BP 128 / 103; Pulse 104; Resp 24 S; Temp 99.2(O); Pulse Ox 99% on R/A; aa5 17:19 BP 138 / 87; Pulse 89; Resp 18; Pulse Ox 99% on R/A; mb9 19:22 BP 153 / 89; Pulse 84; Resp 18; Pulse Ox 100% on R/A; mb9 20:44 BP 143 / 88; Pulse 80; Resp 18; Pulse Ox 100% on R/A; mb9 21:23 BP 140 / 87; Pulse 88; Resp 16; Pulse Ox 93% on R/A; jb4 MDM: 15:58 Patient medically screened. ms3 16:16 Differential diagnosis: Flu vs COVID vs Surgical site infection. ms3 16:34 ED course: Discussed case with Dr Gomes. Agrees with current workup, would add CT ms3 Lumbar without contrast and Procal. Treat pain. 18:29 Data reviewed: vital signs, nurses notes, lab test result(s), radiologic studies, CT jeanna scan. Consideration of Admission/Observation Escalation of care including admission/observation considered. I considered the following discharge prescriptions or medication management in the emergency department Medications were administered in the Emergency Department. See MAR. Independent interpretation of the following test(s) in the Emergency Department CT Scan: My interpretation is CT POST SURGICAL. Test considered but Not performed: EKG: NO EKG. Historians other than the Patient: PATIENT WELL INFORMED. Care significantly affected by the following chronic conditions: NONE. 10/18 15:58 Order name: CRP; Complete Time: 18:05 ms3 10/18 15:58 Order name: CBC with Diff; Complete Time: 17:39 ms3 10/18 15:58 Order name: BMP; Complete Time: 18:05 ms3 10/18 16:02 Order name: Blood Culture Adult (2) ms3 10/18 16:02 Order name: COVID-19/FLU A+B; Complete Time: 18:05 ms3 10/18 16:02 Order name: Urinalysis w/ reflexes; Complete Time: 20:46 ms3 10/18 16:34 Order name: Procal; Complete Time: 20:46 ms3 10/18 16:34 Order name: CT Lumbar Spine Wo Con; Complete Time: 17:05 ms3 10/18 19:05 Order name: Chest Single View; Complete Time: 20:46 EDMS Administered Medications: 17:19 Drug: morphine IVP or IV 4 mg IVP once over 4 mins Route: IVP; Infused Over: 4 mins; mb9 Site: right antecubital; 18:03 Follow up: Response: No adverse reaction mb9 18:35 Drug: NS 0.9% IV 1000 ml IV at 1 bolus Per protocol; 1000 mL bolus Route: IV; Rate: 1 mb9 bolus; Site: right antecubital; 20:42 Follow up: Response: No adverse reaction; IV Status: Completed infusion mb9 18:36 Drug: morphine IVP or IV 4 mg IVP once over 4 mins Route: IVP; Infused Over: 4 mins; mb9 Site: right antecubital; 19:22 Follow up: Response: No adverse reaction mb9 20:09 Drug: HYDROmorphone IVP 1 mg IVP once Route: IVP; Site: right antecubital; mb9 20:48 Follow up: Response: No adverse reaction mb9 20:47 Not Given (Patient Refused): ondansetron 4 mg IVP once; over 2 minutes mb9 22:18 Drug: HYDROmorphone IVP 1 mg IVP once Route: IVP; Site: right antecubital; jb4 Disposition Summary: 10/18/23 18:18 Transfer Ordered Notes: Transfer Location: [facility] jeanna Reason: Higher level of care jeanna Condition: Fair jeanna Problem: new jeanna Symptoms: have improved jeanna Accepting Physician: TO DR GOMES(10/18/23 22:20) jb4 Diagnosis - Low back pain - SP 10/14 SURGERY jeanna - Fever, unspecified jeanna Forms: - Medication Reconciliation Form jeanna - SBAR form jeanna Signatures: Dispatcher [employer] EDMS Forest Mcgovern MD MD cha Calderon, Audri, RN RN aa5 Gato Zaldivar RN RN jb4 Jose Luis Macias DO DO ms3 Nona Webb, RN RN mb9 Trip Alvarez MD MD rt Corrections: (The following items were deleted from the chart) 19:05 18:20 Chest Pa And Lat (2 Views)+RAD.RAD.BRZ ordered. EDNC EDMS 22:20 18:[address] ELLEN meeks jb4
--- NOTE | 2023-10-18 18:18 | ER ---
Nurse's Notes [facility] Name: Rajat Mckee Age: 48 yrs Sex: Male : 1975 Arrival Date: 10/18/2023 Time: 15:34 Bed 13 Private MD: Diagnosis: Low back pain-SP 10/14 SURGERY;Fever, unspecified Presentation: 10/18 16:10 Chief complaint: Patient states: back pain that got worse today, reports back fusion aa5 10/14/23 and taking "Oxycodone and muscle relaxants" without improvement of pain. Pt also reports fever up to 101.6*F since discharge from [facility] in [place]. Coronavirus screen: fever. Ebola Screen: Patient denies travel to an Ebola-affected area in the 21 days before illness onset. Initial Sepsis Screen: Does the patient meet any 2 criteria? HR > 90 bpm. Does the patient have a suspected source of infection? No. Patient's initial sepsis screen is negative. Risk Assessment: Do you want to hurt yourself or someone else? Patient reports no desire to harm self or others. Onset of symptoms was September 2023. 16:10 Method Of Arrival: Ambulatory aa5 16:10 Acuity: AME 2 aa5 Historical: - Allergies: 16:09 steroids; aa5 16:09 GABAPENTIN; aa5 - PMHx: 16:09 None; aa5 - PSHx: 16:09 L3, L4, L5 fusion 10/14/23; aa5 - Immunization history:: Adult Immunizations unknown. - Social history:: Smoking status: Patient denies any tobacco usage or history of. Screenin:22 [facility] ED Fall Risk Assessment (Adult) History of falling in the last 3 months, mb9 including since admission No falls in past 3 months (0 pts) Confusion or Disorientation No (0 pts) Intoxicated or Sedated No (0 pts) Impaired Gait No (0 pts) Mobility Assist Device Used No (0 pt) Altered Elimination No (0 pt) Score/Fall Risk Level 0 - 2 = Low Risk Oriented to surroundings, Maintained a safe environment, Educated pt \\T\\ family on fall prevention, incl call for assistance when getting out of bed. Abuse screen: Denies threats or abuse. Nutritional screening: No deficits noted. Tuberculosis screening: No symptoms or risk factors identified. Assessment: 16:47 Reassessment: pt brought back to ER room. mb9 17:21 General: Appears in no apparent distress. uncomfortable, Behavior is calm, cooperative. mb9 Pain: Complains of pain in back Pain does not radiate. Pain currently is 10 out of 10 on a pain scale. Quality of pain is described as stabbing, throbbing. Neuro: Bill Agitation-Sedation Scale (RASS): 0 - Alert and Calm Level of Consciousness is awake, alert, obeys commands, Oriented to person, place, time, situation, Appropriate for age. Cardiovascular: Patient's skin is warm and dry. Respiratory: Airway is patent Respiratory effort is even, unlabored, Respiratory pattern is regular, symmetrical. GI: No signs and/or symptoms were reported involving the gastrointestinal system. : No signs and/or symptoms were reported regarding the genitourinary system. Derm: erythema noted in incision site on back. 19:00 Reassessment: No changes from previously documented assessment. Patient and/or family mb9 updated on plan of care and expected duration. Pain level reassessed. Patient is alert, oriented x 3, equal unlabored respirations, skin warm/dry/pink. 20:44 Reassessment: Patient appears in no apparent distress at this time. No changes from mb9 previously documented assessment. Patient and/or family updated on plan of care and expected duration. Pain level reassessed. Patient is alert, oriented x 3, equal unlabored respirations, skin warm/dry/pink. 21:23 Reassessment: Patient appears in no apparent distress at this time. Patient and/or jb4 family updated on plan of care and expected duration. Pain level reassessed. Patient is alert, oriented x 3, equal unlabored respirations, skin warm/dry/pink. 22:19 Reassessment: Pt transferred to receiving facility. jb4 Vital Signs: 16:10 BP 128 / 103; Pulse 104; Resp 24 S; Temp 99.2(O); Pulse Ox 99% on R/A; aa5 17:19 BP 138 / 87; Pulse 89; Resp 18; Pulse Ox 99% on R/A; mb9 19:22 BP 153 / 89; Pulse 84; Resp 18; Pulse Ox 100% on R/A; mb9 20:44 BP 143 / 88; Pulse 80; Resp 18; Pulse Ox 100% on R/A; mb9 21:23 BP 140 / 87; Pulse 88; Resp 16; Pulse Ox 93% on R/A; jb4 ED Course: 15:37 Patient arrived in ED. kj1 15:49 Jose Luis Macias DO is Attending Physician. ms3 16:10 Arm band placed on. aa5 16:12 Triage completed. aa5 16:18 Neurosurgeon paged at 16:18 Dr Salinas. bd 16:34 Nona Webb, RN is Primary Nurse. mb9 16:46 CT Lumbar Spine Wo Con In Process Unspecified. EDMS 17:19 COVID-19/FLU A+B Sent. mb9 17:19 Blood Culture Adult (2) Sent. mb9 17:19 BMP Sent. mb9 17:19 Procal Sent. mb9 17:19 CBC with Diff Sent. mb9 17:19 CRP Sent. mb9 17:22 Placed in gown. Bed in low position. Call light in reach. Side rails up X 1. Client mb9 placed on continuous cardiac and pulse oximetry monitoring. NIBP monitoring applied. conveyor monitor on. 17:23 No provider procedures requiring assistance completed. Inserted saline lock: 20 gauge mb9 in right antecubital area, using aseptic technique. 18:21 initiated transfer to [facility]. bd 18:57 pt accepted in transfer to [facility] by dr salinas,admin approval given by isacc Ordonez pt going to 1818. 19:05 Chest Single View In Process Unspecified. EDMS 20:43 Patient transferred, IV remains in place. mb9 Administered Medications: 17:19 Drug: morphine IVP or IV 4 mg IVP once over 4 mins Route: IVP; Infused Over: 4 mins; mb9 Site: right antecubital; 18:03 Follow up: Response: No adverse reaction mb9 18:35 Drug: NS 0.9% IV 1000 ml IV at 1 bolus Per protocol; 1000 mL bolus Route: IV; Rate: 1 mb9 bolus; Site: right antecubital; 20:42 Follow up: Response: No adverse reaction; IV Status: Completed infusion mb9 18:36 Drug: morphine IVP or IV 4 mg IVP once over 4 mins Route: IVP; Infused Over: 4 mins; mb9 Site: right antecubital; 19:22 Follow up: Response: No adverse reaction mb9 20:09 Drug: HYDROmorphone IVP 1 mg IVP once Route: IVP; Site: right antecubital; mb9 20:48 Follow up: Response: No adverse reaction mb9 20:47 Not Given (Patient Refused): ondansetron 4 mg IVP once; over 2 minutes mb9 22:18 Drug: HYDROmorphone IVP 1 mg IVP once Route: IVP; Site: right antecubital; jb4 Medication: 17:52 VIS not applicable for this client. mb9 Outcome: 18:18 ER care complete, transfer ordered by . jeanna 20:43 Transferred by ground EMS Transfer form completed. Note: report given to transferring mb9 nurse patience 20:43 Condition: stable 20:43 Instructed on the need for transfer, 22:20 Patient left the ED. jb4 Signatures: Dispatcher [employer] EDMS Diana Champagne Corey, MD MD cha Calderon, Audri RN RN aa5 Gato Zaldivar RN RN jb4 Yoanna Davidson kj1 Jose Luis Macias DO DO ms3 Nona Webb, DARCI RN mb9 Corrections: (The following items were deleted from the chart) 16:12 16:10 Acuity: AME 3 aa5 aa5
[2023-10-18] MEDS ORDERED: NA CHLORIDE 0.9% 1,000 ML ONE (18:46)
--- NOTE | 2023-10-18 19:15 | RAD REPORT ---
EXAM DESCRIPTION: Yvette Single View10/18/2023 7:05 pm CLINICAL HISTORY: Cough COMPARISON: 2009 FINDINGS: Mediastinum is prominent. A few areas of scarring or subsegmental atelectasis within the right lung base The heart is mildly enlarged IMPRESSION: Prominent mediastinum. CT chest with IV contrast recommended
[2023-10-18] MEDS ORDERED: HYDROMORPHONE HCL 1 MG/ML INJ ONE ×2 (20:27→22:28)
[2023-10-18 20:30] LABS: Urine Bilirubin NEGATIVE (Negative); Urine Blood Negative (Negative); Urine Clarity Clear (Clear); Urine Color Yellow (Yellow); Urine Glucose NEGATIVE (Negative); Urine Protein NEGATIVE (Negative); Urine Urobilinogen Normal (Normal)
[2023-10-18 23:17] VITALS: TEMP 99.2
[2023-10-18 23:22] VITALS: BP 140/87; O2SAT 93
== END 2023-10-18 22:20 | disposition short-term general hospital (02) ==
LOC: ER 15:34
DX: G89.18 Other acute postprocedural pain (principal); R50.9 Fever, unspecified; Z98.890 Other specified postprocedural states; Z11.52 Encounter for screening for COVID-19; Z88.8 Allergy status to other drugs, medicaments and biological substances
CPT/HCPCS: 96361; 87040 ×2; 85025; 80048; 36415; 81003; 84145; 0240U; 86140; 72131; 71045; 96375; 96374; 99285; J1170 ×2; J7030

== ENCOUNTER 2025-08-26 12:12 | Emergency (ER) | payer OTHER ==
--- NOTE | 2025-08-26 13:09 | RAD REPORT ---
Extremity Venous Uni Ltd CLINICAL INDICATION: Male, 50 years old.PAIN RIGHT TECHNIQUE: Complete duplex sonography of the lower extremity veins was performed of the affected limb . The examination included compression for vein patency, color Doppler imaging and flow augmentation in response to distal compression of the common femoral, femoral, popliteal, peroneal, t ibial and great saphenous veins. [id number]. COMPARISON: No prior exams FINDINGS: Duplex sonography imaging demonstrates all deep veins examined to be fully compressible with spontane ous, phasic and augmented flow in the affected limb. Fluid collection at the superior aspect of the medial calf measuring 5.8 cm which is presumably posto perative. IMPRESSION: No evidence of deep venous thrombosis in the right lower extremity.
--- NOTE | 2025-08-26 13:37 | EDPHYS ---
Physician Documentation [facility] Name: Rajat Mckee Age: 50 yrs Sex: Male : 1975 Arrival Date: 08/26/2025 Time: 12:12 Bed 11 Private MD: ED Physician Melissa Diallo HPI: 08/26 13:31 This 50 yrs old Male presents to ER via Ambulatory with complaints of Leg Swelling. sp3 13:32 50-year-old male with no past medical history presents with right calf pain and sp3 swelling started 2 days ago suddenly, with patient being status post arthroscopic knee surgery on the same side approximately 3 weeks ago. Patient has had no complication from the surgery and was been ambulatory since. Patient also had a lower extremity ultrasound performed at [facility] yesterday which was negative.. Historical: - Allergies: 12:36 GABAPENTIN; me1 12:36 steroids; me1 - PMHx: 12:36 None; me1 - PSHx: 12:36 L3; right knee surgery; me1 - Immunization history:: Adult Immunizations up to date. - Infectious Disease History:: Denies. - Social history:: Smoking status: Patient/guardian denies using tobacco, but has a distant history of tobacco abuse. ROS: 13:34 Constitutional: Negative for fever, chills, and weight loss, Eyes: Negative for injury, sp3 pain, redness, and discharge, ENT: Negative for injury, pain, and discharge, Neck: Negative for injury, pain, and swelling, Cardiovascular: Negative for chest pain, palpitations, and edema, Respiratory: Negative for shortness of breath, cough, wheezing, and pleuritic chest pain, Abdomen/GI: Negative for abdominal pain, nausea, vomiting, diarrhea, and constipation, Back: Negative for injury and pain, Skin: Negative for injury, rash, and discoloration, Neuro: Negative for headache, weakness, numbness, tingling, and seizure, Psych: Negative for depression, anxiety, suicide ideation, homicidal ideation, and hallucinations, Allergy/Immunology: Negative for hives, rash, and allergies, Endocrine: Negative for neck swelling, polydipsia, polyuria, polyphagia, and marked weight changes, Hematologic/Lymphatic: Negative for swollen nodes, abnormal bleeding, and unusual bruising, 13:34 All other systems are negative, Exam: 13:34 Constitutional: This is a well developed, well nourished patient who is awake, alert, sp3 and in no acute distress. Head/Face: Normocephalic, atraumatic. Eyes: Pupils equal round and reactive to light, extra-ocular motions intact. Lids and lashes normal. Conjunctiva and sclera are non-icteric and not injected. Cornea within normal limits. Periorbital areas with no swelling, redness, or edema. Neck: Trachea midline, no thyromegaly or masses palpated, and no cervical lymphadenopathy. Supple, full range of motion without nuchal rigidity, or vertebral point tenderness. No Meningismus. Chest/axilla: Normal chest wall appearance and motion. Nontender with no deformity. No lesions are appreciated. Cardiovascular: Regular rate and rhythm with a normal S1 and S2. No gallops, murmurs, or rubs. Normal PMI, no JVD. No pulse deficits. Respiratory: Lungs have equal breath sounds bilaterally, clear to auscultation and percussion. No rales, rhonchi or wheezes noted. No increased work of breathing, no retractions or nasal flaring. Abdomen/GI: Soft, non-tender, with normal bowel sounds. No distension or tympany. No guarding or rebound. No evidence of tenderness throughout. Back: No spinal tenderness. No costovertebral tenderness. Full range of motion. Skin: Warm, dry with normal turgor. Normal color with no rashes, no lesions, and no evidence of cellulitis. Neuro: Awake and alert, GCS 15, oriented to person, place, time, and situation. Cranial nerves II-XII grossly intact. Motor strength 5/5 in all extremities. Sensory grossly intact. Cerebellar exam normal. Normal gait. Psych: Awake, alert, with orientation to person, place and time. Behavior, mood, and affect are within normal limits. 13:34 Musculoskeletal/extremity: Right calf painful and swollen but just between the calf and the knee with no significant pain or swelling. Foot is also mildly swollen. Distal neurovascular exam is normal.. Vital Signs: 12:34 BP 151 / 103; Pulse 68; Resp 18; Temp 97.4; Pulse Ox 100% ; Weight 95.25 kg; Height 6 me1 ft. 0 in. ; Pain 6/10; 13:47 BP 147 / 95; Pulse 75; Resp 16; Pulse Ox 100% ; bp 12:34 Body Mass Index 28.48 (95.25 kg, 182.88 cm) me1 12:34 Pain Scale: Adult me1 MDM: 12:37 Medical Screening Exam initiated sp3 13:35 Data reviewed: vital signs, nurses notes, radiologic studies. ED course: Vital signs sp3 are normal. Right lower extremity ultrasound demonstrates no DVT. Patient has no chest pain or shortness of breath. Knee is not swollen and patient is ambulatory. Differential diagnosis includes lymphatic edema, muscle tear or injury, and DVT (which has been ruled out). Will discharge to surgical follow-up at the [facility] where his procedure was performed.. 08/26 12:38 Order name: US Extremity Venous Unilateral Ltd; Complete Time: 13:15 sp3 Administered Medications: No medications were administered Disposition Summary: 08/26/25 13:36 Discharge Ordered Notes: Location: Home sp3 Condition: Stable sp3 Diagnosis - Right calf pain post surgical, right lower extremity swelling sp3 Followup: sp3 - With: Private Physician - When: Upon discharge from the Emergency Department - Reason: Recheck today's complaints, Continuance of care Discharge Instructions: - Discharge Summary Sheet sp3 - Muscle Pain, Adult sp3 Forms: - Medication Reconciliation Form sp3 - Antibiotic Education sp3 - Prescription Opioid Use sp3 - Patient Portal Instructions sp3 - Leadership Thank You Letter sp3 Signatures: Dispatcher [employer] Melissa Harper MD MD sp3 Barbie Birch RN RN me1 Corrections: (The following items were deleted from the chart) 12:39 12:39 Knee Right 3 View+RAD.RAD.BRZ ordered. EDMS EDMS 12:39 12:39 Extremity Venous Uni Ltd+US.RAD.BRZ ordered. EDMS EDMS
--- NOTE | 2025-08-26 13:37 | ER ---
Nurse's Notes [facility] Name: Rajat Mckee Age: 50 yrs Sex: Male : 1975 Arrival Date: 08/26/2025 Time: 12:12 Bed 11 Private MD: Diagnosis: Right calf pain post surgical, right lower extremity swelling Presentation: 08/26 12:34 Chief complaint: Patient states: Right knee sx 3 weeks ago. Yesterday started noticing me1 some swelling to right lower leg and developed pain to Right calf. Pain /. Coronavirus screen: At this time, the client does not indicate any symptoms associated with coronavirus-19. Ebola Screen: No symptoms or risks identified at this time. Initial Sepsis Screen: Does the patient meet any 2 criteria? No. Patient's initial sepsis screen is negative. Does the patient have a suspected source of infection? No. Patient's initial sepsis screen is negative. Risk Assessment: Do you want to hurt yourself or someone else? Patient reports no desire to harm self or others. Onset of symptoms was August 25, 2025. 12:34 Method Of Arrival: Ambulatory ia1 12:34 Acuity: AME 4 me1 Triage Assessment: 12:40 General: Appears in no apparent distress. Behavior is calm, cooperative, appropriate bp for age. Pain: Complains of pain in right leg. EENT: No deficits noted. Neuro: No deficits noted. Cardiovascular: No deficits noted. Respiratory: No deficits noted. GI: No signs and/or symptoms were reported involving the gastrointestinal system. : No signs and/or symptoms were reported regarding the genitourinary system. Derm: No deficits noted. Musculoskeletal: No deficits noted. Historical: - Allergies: 12:36 GABAPENTIN; me1 12:36 steroids; me1 - PMHx: 12:36 None; me1 - PSHx: 12:36 L3; right knee surgery; me1 - Immunization history:: Adult Immunizations up to date. - Infectious Disease History:: Denies. - Social history:: Smoking status: Patient/guardian denies using tobacco, but has a distant history of tobacco abuse. Screenin:40 [facility] ED Fall Risk Assessment (Adult) History of falling in the last 3 months, bp including since admission No falls in past 3 months (0 pts) Confusion or Disorientation No (0 pts) Intoxicated or Sedated No (0 pts) Impaired Gait No (0 pts) Mobility Assist Device Used No (0 pt) Altered Elimination No (0 pt) Score/Fall Risk Level 0 - 2 = Low Risk Oriented to surroundings. Abuse screen: Denies threats or abuse. Denies injuries from another. Nutritional screening: No deficits noted. Tuberculosis screening: No symptoms or risk factors identified. Assessment: 12:40 General: SEE TRIAGE NOTE. bp 12:40 Reassessment: No changes from previously documented assessment. Patient is alert, bp oriented x 3, equal unlabored respirations, skin warm/dry/pink. Vital Signs: 12:34 BP 151 / 103; Pulse 68; Resp 18; Temp 97.4; Pulse Ox 100% ; Weight 95.25 kg; Height 6 me1 ft. 0 in. ; Pain 6/10; 13:47 BP 147 / 95; Pulse 75; Resp 16; Pulse Ox 100% ; bp 12:34 Body Mass Index 28.48 (95.25 kg, 182.88 cm) me1 12:34 Pain Scale: Adult me1 ED Course: 12:14 Patient arrived in ED. mr 12:17 Melissa Diallo MD is Attending Physician. sp3 12:36 Triage completed. me1 12:36 Arm band placed on Patient placed in an exam room. me1 12:40 Patient has correct armband on for positive identification. bp 12:44 Giuliano Fitzpatrick, RN is Primary Nurse. bp 13:02 US Extremity Venous Unilateral Ltd In Process Unspecified. EDMS 13:46 No provider procedures requiring assistance completed. Patient did not have IV access bp during this emergency room visit. Administered Medications: No medications were administered Medication: 12:40 VIS not applicable for this client. bp Outcome: 13:36 Discharge ordered by . sp3 13:46 Discharged to home ambulatory, with family, bp 13:46 Condition: stable 13:46 Discharge instructions given to patient, Instructed on discharge instructions, follow up and referral plans. Demonstrated understanding of instructions, follow-up care, 13:47 Patient left the ED. bp Signatures: Dispatcher [employer] EDNE Nona Gross, Reg Reg mr Giuliano Fitzpatrick, RN RN bp Melissa Diallo MD MD sp3 Barbie Birch RN RN me1 Corrections: (The following items were deleted from the chart) 13:47 12:40 BP 147 / 95; Pulse 75bpm; Resp 16bpm; Pulse Ox 100%; bp bp
[2025-08-26 14:03] VITALS: TEMP 97.4; O2SAT 100
[2025-08-26 14:05] VITALS: BP 147/95
== END 2025-08-26 13:47 | disposition home or self-care (01) ==
LOC: ER 12:12
DX: M79.661 Pain in right lower leg (principal); G89.18 Other acute postprocedural pain; Z88.8 Allergy status to other drugs, medicaments and biological substances
CPT/HCPCS: 93971; 99282